=== PATIENT | male | born 1950 | race Two or more races ===

== ENCOUNTER 2016-10-23 13:28 | Inpatient (IN) | payer MEDICARE, MEDICAID ==
[~2016-10-23 13:28] MED LIST: MOTRIN IB200 M1 PO; PENICILLIN V P500 M1 PO
[2016-10-23 14:34] LABS: BASO % 0.6 % (0-2); BASO ABSOLUTE COUNT 0.1 tho/cmm (0.0-0.2); EOS % 2.5 % (0-7); EOSINOPHIL ABSOLUTE COUNT 0.2 tho/cmm (0.0-0.7); HCT-HEMATOCRIT 44.9 % (36.0-53.5); HGB-HEMOGLOBIN 15.4 gm/dl (13.5-17.0); IMMATURE GRANULOCYTES ABSOLUTE 0.05 tho/cmm (0-0.03); IMMATURE GRANULOCYTES PERCENT 0.6 % (0-0.3); LYMPH % 28.8 % (20-45); LYMPH ABSOLUTE COUNT 2.2 tho/cmm (0.8-4.5); MCH (MEAN CORPUSCULAR HGB) 31.8 pg (28.0-32.0); MCHC MEAN CORPUSCULAR HGB CONC 34.3 % (32.0-36.0); MCV (MEAN CELL VOLUME) 92.8 fl (82.0-96.0); MEAN PLATELET VOLUME 10.8 cmc (9.4-12.4); MONO % 11.6 % (0-12); MONOCYTE ABSOLUTE COUNT 0.9 tho/cmm (0.0-1.2); NEUTROPHIL ABSOLUTE COUNT 4.3 tho/cmm (1.6-8.0); NEUTROPHIL-AUTOMATED 4.3 tho/cmm (1.6-8.0); NEUTROPHILS % 55.9 % (40-80); PLATELET COUNT 271 tho/cmm (150-450); RED BLOOD COUNT 4.84 mil/cmm (4.40-5.70); RED CELL DISTRIBUTION WIDTH 12.5 % (12.4-16.4); WHITE BLOOD COUNT 7.8 tho/cmm (4.0-10.0)
[2016-10-24] MEDS ORDERED: MEDROL4 M1 PO (09:21)
[2016-10-24] MEDS ORDERED: PERCOCET 10-321 EACH PO (09:21)
== END 2016-10-24 09:55 | DRG 138 ==
LOC: SHSB 13:28 → PACU 17:22 → SHSB 19:51 → 5WE 21:32
PROVIDERS: Anesthesiology; ADMIT Oral & Maxillofacial Surgery
PROC: 0CB7XZZ Excision of Tongue, External Approach (ICD-10-PCS; principal; 2016-10-23)
DX: C02.9 Malignant neoplasm of tongue, unspecified (principal); Z23 Encounter for immunization
CPT/HCPCS: G0008; G0009; J0690; J1100; J2270; J3010; J3480

== ENCOUNTER 2016-11-05 09:11 | Emergency (ER) | payer MEDICARE, MEDICAID ==
[~2016-11-05 09:11] MED LIST changes: +MEDROL4 M1 PO; +PERCOCET 10-321 EACH PO
[2016-11-05] MEDS ORDERED: PERCOCET 10-321 EACH PO (09:22)
[2016-11-05 09:51] LABS: BASO % 0.2 % (0-2); EOS % 0.4 % (0-7); HCT-HEMATOCRIT 39.5 % (36.0-53.5); HGB-HEMOGLOBIN 13.8 gm/dl (13.5-17.0); IMMATURE GRANULOCYTES ABSOLUTE 0.06 tho/cmm (0-0.03); IMMATURE GRANULOCYTES PERCENT 0.6 % (0-0.3); LYMPH % 8.5 % (20-45); LYMPH ABSOLUTE COUNT 0.8 tho/cmm (0.8-4.5); MCH (MEAN CORPUSCULAR HGB) 32.1 pg (28.0-32.0); MCHC MEAN CORPUSCULAR HGB CONC 34.9 % (32.0-36.0); MCV (MEAN CELL VOLUME) 91.9 fl (82.0-96.0); MEAN PLATELET VOLUME 10.3 cmc (9.4-12.4); MONO % 11.4 % (0-12); MONOCYTE ABSOLUTE COUNT 1.1 tho/cmm (0.0-1.2); NEUTROPHIL ABSOLUTE COUNT 7.8 tho/cmm (1.6-8.0); NEUTROPHIL-AUTOMATED 7.8 tho/cmm (1.6-8.0); NEUTROPHILS % 78.9 % (40-80); RED CELL DISTRIBUTION WIDTH 12.6 % (12.4-16.4); WHITE BLOOD COUNT 9.8 tho/cmm (4.0-10.0)
[2016-11-05 10:10] LABS: ANION GAP 13 mmol/L (0-20); BLOOD UREA NITROGEN 11 mg/dl (6-24); CALCIUM 8.5 mg/dl (8.5-10.5); CARBON DIOXIDE-VENOUS 22 mmol/L (22-32); CHLORIDE 100 mmol/l (96-110); GLUCOSE 168 mg/dL (70-110); SODIUM 131 mmol/L (135-145); eGFR VALUE FOR BLACK 89 mL/Min
[2016-11-05 10:11] LABS: POTASSIUM 4.1 mmol/L (3.7-5.1)
[2016-11-05 10:34] LABS: PLATELET COUNT 250 tho/cmm (150-450)
[2016-11-05 11:48] LABS: URINE BILIRUBIN NEGATIVE (NEG); URINE BLOOD NEGATIVE (NEG); URINE GLUCOSE (UA) NEGATIVE (NEG); URINE KETONE NEGATIVE (NEG); URINE LEUKOCYTE ESTERASE NEGATIVE (NEG); URINE NITRITE NEGATIVE (NEG); URINE PROTEIN NEGATIVE (NEG); URINE SPECIFIC GRAVITY 1.005 (1.003-1.030)
[2016-11-05 11:52] LABS: URINE APPEARANCE CLEAR; URINE COLOR PALE YELLOW
== END 2016-11-05 12:09 ==
LOC: EDMED 09:11
PROVIDERS: Emergency Medicine
DX: R53.81 Other malaise (principal); R53.83 Other fatigue; R50.9 Fever, unspecified; F17.200 Nicotine dependence, unspecified, uncomplicated
CPT/HCPCS: J7030